=== PATIENT | male | born 1980 | race Caucasian/White ===

== ENCOUNTER → 2020-03-19 07:43 | Outpatient (CLI) | payer OTHER, SELFPAY ==
--- NOTE | ~2020-03-19 | MR_ITS ---
EXAMINATION: MR cervical spine wo con DATE: 03/19/2020 08:34 INDICATION: Neck pain. Other symptoms and signs involving the musculoskeletal system. TECHNIQUE: Magnetic resonance imaging (MRI) of the cervical spine was performed without intravenous c ontrast. Sequences included sagittal T2-weighted FSE, sagittal STIR FSE, sagittal T1-weighted FSE, ax ial MERGE, and axial T2-weighted FSE. COMPARISON: Cervical spine MRI 08/02/2015 FINDINGS: There is mild kyphosis of cervical spine. Vertebral body heights are normal. There is mildl y decreased disc height at C4-C5, moderately decreased disc height at C6-C7, and mildly decreased dis c height at C7-T1. The spinal cord signal intensity is normal. The following disc levels are specific ally discussed: C2-C3: The disc does not extend beyond the endplate margin. There is mild left uncovertebral joint os teoarthritis. There is mild right and moderate left facet joint osteoarthritis. There is mild left ne ural foraminal stenosis. There is no central canal stenosis. C3-C4: The disc does not extend beyond the endplate margin. There is mild bilateral uncovertebral tj nt osteoarthritis. There is moderate bilateral facet joint osteoarthritis. There is mild bilateral ne ural foraminal stenosis. There is no central canal stenosis. C4-C5: The disc is bulging. There is mild bilateral uncovertebral joint osteoarthritis. There is mild right facet joint osteoarthritis. There is mild right neural foraminal stenosis. There is mild centr al canal stenosis. C5-C6: The disc does not extend beyond the endplate margin. There is no uncovertebral joint osteoarth ritis. There is mild bilateral facet joint osteoarthritis. There is no neural foraminal stenosis. The re is no central canal stenosis. C6-C7: The disc does not extend beyond the endplate margin. There is mild right and moderate left unc overtebral joint osteoarthritis. There is no facet joint osteoarthritis. There is mild left neural fo raminal stenosis. There is no central canal stenosis. C7-T1: The disc is bulging. There is mild right and moderate left uncovertebral joint osteoarthritis. There is severe right and moderate left facet joint osteoarthritis. There is mild right and moderate left neural foraminal stenosis. There is mild central canal stenosis. IMPRESSION: 1. Moderate cervical spondylosis, stable from 08/02/2015. Reviewed, dictated and finalized at location A.
== END ==
PROVIDERS: Visit Provider Nurse Practitioner Family
DX: R29.898 Other symptoms and signs involving the musculoskeletal system (principal); M47.892 Other spondylosis, cervical region
CPT/HCPCS: 72141

== ENCOUNTER 2021-01-23 07:47 | Emergency (ER) | payer OTHER, SELFPAY ==
[2021-01-23 07:53] VITALS: BP 132/78; PULSE 74; RESP 18; TEMP 36.6; O2SAT 99
--- NOTE | 2021-01-23 08:02 | ECG_ITS ---
Measurements Intervals [place] Rate: 60 P: 27 CT: 126 QRS: 30 QRSD: 103 T: 51 QT: 442 QTc: 445 Interpretive Statements SINUS RHYTHM ST ELEVATION IN ANTERIOR LEADS- PROBABLY EARLY REPOLARIZATION BORDERLINE ECG Electronically Signed On 01-23-2021 10:27:53 CDT by Memo Kirkland D.O.
[2021-01-23 08:32] VITALS: BP 119/73; PULSE 67; RESP 18; O2SAT 100
--- NOTE | 2021-01-23 08:44 | ED.GENADULT ---
HPI - General Adult General Chief complaint: Extremity Injury, Upper Stated complaint: LEFT SHOULDER/ARM PAIN Time Seen by Provider: 01/23/21 07:53 Source: patient and RN notes reviewed Mode of arrival: ambulatory Limitations: no limitations History of Present Illness HPI narrative: This is a 40 year old male with history of left shoulder bursitis and cervical radiculopathy who presents for evaluation of left shoulder pain. He states he developed pain last night. He has pain is his left shoulder that radiates down his arm. He also reports pain to left shoulder blade and left neck. He states that he is worried that he is having a heart attack. He states the pain is similar to previous pain caused by his bursitis but it also feels different. He states that it feels different because he is usually able to get pain to go away with certain positions. He denies associated nausea, vomiting, shortenss of breath , chest pain, fever, or chills. Related Data Allergies Allergy/AdvReac Type Severity Reaction Status Date / Time No Known Allergies Allergy Verified 03/07/20 10:37 Review of Systems Review of Systems: All systems reviewed & are unremarkable except as noted in HPI and below PMFSH Past Medical History Medical History Bilateral shoulder pain Left upper extremity numbness Rotator cuff tendinitis Trigger point with neck pain Winging of scapula Surgical History Surgical History H/O bursectomy History of open reduction and internal fixation (ORIF) procedure History of removal of retained hardware Family History Family History Other Family history of arthritis Family history of cardiovascular disease Hypertension Social History Social History Smoking status: Former smoker Smoking end date: 09/06/08 Alcohol intake: current Substance use: unknown Additional occupation/education comments: Construction Gender identity (if verbalized by the patient): Male Spiritual care concerns: No Exam Const: General: no acute distress and alert Orientation/consciousness: patient oriented x3 Eyes: EOM: EOMs intact bilaterally Chest: Chest palpation & inspection: normal inspection of the chest Resp: Effort & Inspection: normal respiratory effort and no retractions Auscultation: clear to auscultation bilaterally Cardio: Rate: regular rate Rhythm: regular rhythm Heart sounds: no murmurs GI: GI Palp: Yes Soft to palpation, No Tenderness to palpation present (GI) and No Guarding due to palpation present (GI) Auscultation: normal bowel sounds Skin: General skin exam: normal color Rashes: no rashes Neuro: General: patient oriented x3, moves all extremities and CN's II-XI intact bilaterally Extrem: General: normal to inspection Psych: Mental Status: mental status grossly normal Affect: normal affect Course Reevaluation(s) Reevaluation #1: I discussed with patient labs are unremarkable. He just want to make sure he was not having a heart attack. tHis pain appears to be related to his cervical radiculopathy. He will follow up with his orthopedic surgeon. Date: 01/23/21 Time: 09:20 Vital Signs Vital signs: Vital Signs Temperature 97.9 F 01/23/21 07:53 Pulse Rate 74 01/23/21 07:53 Respiratory Rate 18 01/23/21 07:53 Blood Pressure 132/78 01/23/21 07:53 Pulse Oximetry 99 01/23/21 07:53 Temperature 97.9 F 01/23/21 07:53 Pulse Rate 69 01/23/21 08:53 Respiratory Rate 14 01/23/21 08:53 Blood Pressure 137/92 H 01/23/21 08:53 Pulse Oximetry 100 01/23/21 08:53 Medical Decision Making Vital Signs Vital Signs: Vital Signs Temperature 97.9 F 01/23/21 07:53 Pulse Rate 74 01/23/21 07:53 Respiratory Rate 18 01/23/21 07:53 Blood Pressure 132/78
[2021-01-23 08:47] VITALS: BP 137/92; PULSE 69; RESP 17; O2SAT 100
[2021-01-23 08:47] LABS: Basophils Absolute Auto 0.1 K/mm3 (0.0-0.1); Basophils Percent Auto 0.8 % (0.2-1.2); Eosinophils Absolute Auto 0.5 K/mm3 (0-0.3); Eosinophils Percent Auto 7.6 % (0-4.4); Hematocrit 41.7 % (42.0-52.0); Hemoglobin 14.2 g/dL (14.0-18.0); Immature Granulocyte Absolute 0.02 K/mm3 (0.00-0.031); Immature Granulocyte Percent A 0.3 % (0-0.5); Lymphocytes Absolute Auto 1.69 K/mm3 (0.9-3.2); Mean Corpuscular HGB Conc 34.1 g/dl (32-36); Mean Corpuscular Hemoglobin 29.6 pg (26-34); Mean Corpuscular Volume 87.1 fl (80-100); Mean Platelet Volume 10.4 fl (7.4-10.4); Monocytes Absolute Auto 0.5 K/mm3 (0.1-0.6); Monocytes Percent Auto 7.7 % (2.6-8.5); Neutrophils Absolute Auto 3.7 K/mm3 (1.3-6.7); Neutrophils Percent Auto 57.6 % (45.5-73.1); Platelet Count Result 219 k/mm3 (150-375); Red Blood Count 4.79 M/mm3 (4.6-6.20); Red Cell Distribution Width 12.2 % (11.5-14.5); White Blood Count 6.5 K/mm3 (4.5-10.0)
[2021-01-23 08:53] VITALS: BP 137/92; PULSE 69; RESP 14; O2SAT 100
[2021-01-23 08:55] LABS: INR 1.1; Prothrombin Time 14.5 Seconds (11.1-14.7)
[2021-01-23 08:56] LABS: Partial Thromboplastin Time 31.5 SECONDS (22.3-36.8)
[2021-01-23 08:57] LABS: Anion Gap 6 mmol/L (8-16); Blood Urea Nitrogen 13 mg/dL (9-20); Calcium 8.7 mg/dL (8.4-10.2); Carbon Dioxide 28 mmol/L (22-30); Chloride 104 mmol/L (98-107); Estimated CRCL calculation 107 ml/min; Estimated Glomerular Filt Rate > 60; Glucose 153 mg/dL (75-110); Potassium 3.6 mmol/L (3.4-5.0); Sodium 138 mmol/L (137-145)
[2021-01-23 09:09] LABS: Troponin I < 0.012 ng/mL (0.000-0.034)
[2021-01-23] MEDS: KETOROLAC (*BKC) 60 MG/2 ML VIAL IM (09:20)
--- NOTE | 2021-01-23 09:20 | PC.NURSE ---
Pt unhooked himself from tele monitor and got dressed
== END 2021-01-23 09:42 | disposition home or self-care (01) ==
PROVIDERS: Emergency Provider General Practice; PCP Emergency Medicine
DX: M54.12 Radiculopathy, cervical region (principal); M25.512 Pain in left shoulder; Z87.891 Personal history of nicotine dependence; R94.31 Abnormal electrocardiogram [ECG] [EKG]
CPT/HCPCS: 36415; 80048; 84484; 85025; 85610; 85730; 93005; 96372; 99284; J1885

== ENCOUNTER 2023-08-10 15:59 | Outpatient (CLI) | payer OTHER, SELFPAY ==
--- NOTE | ~2023-08-10 | XR_ITS ---
XR forearm RT 2V 08/10/2023 16:16 Indication: Right arm pain Procedure: 2 views left forearm Comparison: 02/08/2018 Findings: There is a side plate and screws transfixing the radius. There are multiple metallic radiod ensities overlying the olecranon process. 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 No acute fracture or traumatic malalignment. Impression: 1: No acute bone or joint abnormality Reviewed, dictated and finalized at location B. LLE [employer]OOF[employer]ER Impression: 1: No acute bone or joint abnormality
== END 2023-08-10 16:00 | disposition home or self-care (01) ==
PROVIDERS: PCP Emergency Medicine; Visit Provider Emergency Medicine
DX: M79.601 Pain in right arm (principal); Z98.890 Other specified postprocedural states
CPT/HCPCS: 73090

== ENCOUNTER 2023-12-19 12:22 | Emergency (ER) | payer OTHER, SELFPAY ==
[2023-12-19 12:27] VITALS: BP 140/71; PULSE 95; RESP 16; TEMP 37.3; O2SAT 97
--- NOTE | 2023-12-19 12:45 | ED.URI ---
HPI - URI/Sore Throat General Chief Complaint: Upper Respiratory Infection Stated Complaint: Fever/Cough/Chest Congestion History of Present Illness HPI Narrative: Patient presents with nasal congestion fever body aches and cough. No shortness of breath no chest pain. Patient states his symptoms started 3 days ago. Related Data Allergies Allergy/AdvReac Type Severity Reaction Status Date / Time No Known Allergies Allergy Verified 12/19/23 12:43 Review of Systems Review of Systems: CONSTITUTIONAL: Denies chills, or sweats. Reports fever and generalized body aches EYES: Denies visual changes, redness, or discharge. ENT: Denies otalgia. Reports nasal congestion runny nose and sore throat CARDIOVASCULAR: Denies chest pain, palpitations, or edema. RESPIRATORY: Denies dyspnea. Reports occasional cough GASTROINTESTINAL: Denies abdominal pain, nausea, vomiting, or diarrhea. GENITOURINARY: Denies dysuria or hematuria. SKIN: Denies rash or itching. MUSCULOSKELETAL: Denies back pain, joint pain, or myalgia. Reports generalized body aches NEUROLOGIC: Denies headache, numbness, or weakness. PSYCHIATRIC: Denies anxiety or depression. [facility] Past Medical History Medical History (Updated 12/19/23 @ 12:46 by CINDY Montemayor) Bilateral shoulder pain Cervical pain (neck) Left upper extremity numbness Rotator cuff tendinitis Trigger point with neck pain Winging of scapula Surgical History Surgical History H/O bursectomy History of open reduction and internal fixation (ORIF) procedure History of removal of retained hardware Family History Family History Other Family history of arthritis Family history of cardiovascular disease Hypertension Social History Social History Smoking status: Former smoker Smoking end date: 09/06/08 Alcohol intake: current Substance use: unknown Occupation/Education: occupation Additional occupation/education comments: Construction Gender identity (if verbalized by the patient): Male Spiritual care concerns: No Comments At time of signature, agree with nursing past medical, surgical, social and family history. There is no relevant family history pertinent to the presenting complaint Exam Narrative: The patient is a well-developed, well-nourished in no acute distress. SKIN: Skin is warm and dry without erythema, swelling or exudate. There is good turgor. No tenting. HEAD: Atraumatic. Normocephalic. No temporal or scalp tenderness. EYES: Moist and bright. Sclera and conjunctivae normal. No discharge. PERRLA. Extraocular motions intact. Gross visual acuity intact. EARS: Pinna is normal shape and contour. Clear external auditory canals. TM pearly valente with good cone of light, no erythema or suppuration. Bilateral cerumen noted no gross hearing deficit. NOSE: pink, moist mucosa with good air movement. Clear rhinorrhea without nasal flaring. Septum midline. Mouth: moist mucous membranes. THROAT; mild erythema noted to posterior oropharynx with moderate postnasal drainage. Without exudate or ulceration.. Uvula midline. Normal movement of soft palate. NECK: Supple and nontender with full range of motion without discomfort. No meningeal signs. LUNGS: Equal and bilateral breath sounds without wheezes, rales or rhonchi. CHEST: The chest wall is without retractions or use of accessory muscles. HEART: Has a regular rate and rhythm without murmur, gallops, click or rub. ABDOMEN: Soft, nontender with positive active bowel sounds. No rebound tenderness. EXTREMITIES: Without cyanosis, clubbing or edema. Equal 2+ distal pulses and 2 second capillary refill noted. NEUROLOGIC: alert, active, . The patient moves all extremities with normal muscle strength. Normal muscle tone is noted. Normal coordination is noted. NO focal n
== END 2023-12-19 12:56 | disposition home or self-care (01) ==
PROVIDERS: Emergency Provider Nurse Practitioner Family; PCP Emergency Medicine
DX: J10.1 Influenza due to other identified influenza virus with other respiratory manifestations (principal); Z20.822 Contact with and (suspected) exposure to COVID-19; Z87.891 Personal history of nicotine dependence
CPT/HCPCS: 87081; 87426; 87804; 87880; 99213; G0463

== ENCOUNTER 2024-08-10 13:09 | Outpatient (CLI) | payer OTHER, SELFPAY ==
--- NOTE | 2024-08-10 | ECG_ITS ---
Test Date: 2024-08-10 13:54:19 Measurements Intervals [place] Rate: 69 P: 21 WI: 122 QRS: 21 QRSD: 113 T: 45 QT: 428 QTc: 460 Interpretive Statements SINUS RHYTHM MODERATE INTRAVENTRICULAR CONDUCTION DELAY [110+ ms QRS DURATION] No previous ECG available for comparison Electronically Signed On 08-10-2024 14:00:27 [employer]OTH PRINTER by Miles Ponce M.D.
== END 2024-08-10 13:10 | disposition home or self-care (01) ==
LOC: ANHLAB 13:13 → ANHCARD 13:21
PROVIDERS: PCP Emergency Medicine; Visit Provider Podiatrist Foot & Ankle Surgery
DX: Z01.818 Encounter for other preprocedural examination (principal); I45.89 Other specified conduction disorders
CPT/HCPCS: 93005